=== PATIENT | female | born 1990 | race African-American/Black ===

== ENCOUNTER 2019-03-22 20:47 | Emergency (ER) | payer MEDICARE, MEDICAID ==
[~2019-03-22] VITALS: Ht 172.7 cm; Wt 102.1 kg
[2019-03-22 21:36] LABS: Basophils # (auto) 0 uL; Basophils % (auto) 0.3 % (0.0-2.0); Eosinophils # (auto) 0.1 uL; Eosinophils % (auto) 0.6 % (0.0-7.0); Hematocrit 32.8 % (36.0-46.0); Hemoglobin 10.9 g/dL (12.2-16.2); Lymphocytes # (auto) 1.3 uL; Lymphocytes % (auto) 11.8 % (10.0-50.0); Mean Corpuscular Hemoglobin 30.2 pg (28.0-32.0); Mean Corpuscular Hgb Conc. 33.4 g/dL (32.0-36.0); Mean Corpuscular Volume 90.6 fL (80.0-100.0); Monocytes # (auto) 0.7 uL; Monocytes % (auto) 6.9 % (0.0-12.0); Neutrophils # (auto) 8.7 uL; Neutrophils % (auto) 80.4 % (37.0-80.0); Nucleated Red Blood Cells % 0.1 %; Platelet Count (auto) 243 10^3/uL (140-450); Red Blood Cells 3.62 10^6/uL (4.0-5.20); Red Cell Distribution Width 13.5 % (11.8-14.3); White Blood Cell 10.8 10^3/uL (4.4-10.8)
[2019-03-22 21:45] VITALS: BP 111/76
[2019-03-22 21:49] LABS: Albumin 2.8 g/dL (3.4-5.0); BUN/Creatinine Ratio 8.6; Calcium 9.3 mg/dL (8.5-10.1); Potassium 3.4 mmol/L (3.5-5.1)
[2019-03-22 21:52] LABS: Bilirubin, Total 0.4 mg/dL (0.2-1.0); Total Protein 7.2 g/dL (6.4-8.2)
== END 2019-03-23 00:56 | disposition left against medical advice (07) ==
LOC: ER 20:52
DX: O26.893 Other specified pregnancy related conditions, third trimester (principal); R56.9 Unspecified convulsions; Z3A.36 36 weeks gestation of pregnancy; Z53.21 Procedure and treatment not carried out due to patient leaving prior to being seen by health care provider
CPT/HCPCS: 36415; 80053; 82542; 83735; 84702; 85025

== ENCOUNTER 2019-03-22 21:13 | Observation (INO) | payer MEDICARE, MEDICAID ==
[~2019-03-22] VITALS: Ht 172.7 cm; Wt 102.1 kg
[2019-03-22] MEDS ORDERED: LACTATED RINGER'S 1,000 ML IV ONE (21:39)
[2019-03-22] MEDS: TERBUTALINE SULFATE 1 MG/ML 1ML VIAL SC SCH ×3 (21:50→22:29)
== END 2019-03-22 23:10 | disposition home or self-care (01) | DRG 833 ==
LOC: LDRP 21:13
PROVIDERS: ADMIT Specialist; ATTEND Specialist
DX: O36.8130 Decreased fetal movements, third trimester, not applicable or unspecified (principal); O62.9 Abnormality of forces of labor, unspecified; O99.353 Diseases of the nervous system complicating pregnancy, third trimester; G40.909 Epilepsy, unspecified, not intractable, without status epilepticus; Z3A.36 36 weeks gestation of pregnancy
CPT/HCPCS: 59025; 81002; 96372; G0378; J3105

== ENCOUNTER 2024-05-31 09:39 | Emergency (ER) | payer OTHER, MEDICAID ==
[~2024-05-31] VITALS: Ht 172.7 cm; Wt 91.1 kg
[~2024-05-31 09:39] MED LIST: LACO50TA2 PO; ONDA-188 PO; ZONI100C43 PO
[2024-05-31 11:38] VITALS: BP 107/64; PULSE 60; RESP 16; TEMP 98.7; O2SAT 100
== END 2024-05-31 11:45 | disposition home or self-care (01) ==
LOC: ER 09:44
DX: R22.43 Localized swelling, mass and lump, lower limb, bilateral (principal); G40.909 Epilepsy, unspecified, not intractable, without status epilepticus; F15.90 Other stimulant use, unspecified, uncomplicated; Z98.890 Other specified postprocedural states; Z79.899 Other long term (current) drug therapy
CPT/HCPCS: 93970